=== PATIENT | male | born 1970 | race Caucasian/White ===

== ENCOUNTER → 2018-10-30 | Outpatient (CLI) | payer OTHER | LOC: FIMAGING 09:49 | PROVIDERS: ATTEND Orthopaedic Surgery | DX: M17.11 Unilateral primary osteoarthritis, right knee (principal) ==

== ENCOUNTER 2018-11-07 05:40 | Observation (INO) | payer OTHER ==
[2018-11-07] MEDS ORDERED: FAMOTIDINE 20 MG TAB PO ONE (05:49)
[2018-11-07] MEDS ORDERED: ONDANSETRON 4 MG/2 ML VIAL IVP ONE (05:49)
[2018-11-07] MEDS ORDERED: DEXAMETHASONE 4 MG/ML VIAL IVP ONE (05:49)
[2018-11-07] MEDS ORDERED: ACETAMINOPHEN 325 MG TAB PO ONE (05:49)
[2018-11-07] MEDS ORDERED: GABAPENTIN 300 MG CAP PO ONE (05:49)
[2018-11-07] MEDS ORDERED: ceFAZolin 2 GM/DEXTROSE 100 ML IV ONE (05:49)
[2018-11-07] MEDS ORDERED: LR 1,000 ML IV ONE (05:55)
[2018-11-07] MEDS ORDERED: TRANEXAMIC ACID 1,000 MG in NS 100 ML IV ONE (06:00)
[2018-11-07] MEDS ORDERED: ROPIVACAINE 0.2% 80 MG, EPINEPHrine 0.2 MG, KETOROLAC TROMETHAMINE 30 MG in SYRINGE 0 ML IU ONE (06:00)
[2018-11-07] MEDS ORDERED: TRANEXAMIC ACID 3,000 MG in NS (SYRINGE) 50 ML IRR ONE (06:00)
--- NOTE | 2018-11-07 06:03 | POSTANESTH ---
Post Anesthetic Evaluation Cardiovascular Status: Normal, Stable Respiratory Status: Normal, Stable Level of Consciousness/Mental Status: Can Participate in Eval, Mildly Sleepy, Arousable Pain Control: Adequate, Prn Tx Ordered Nausea/Vomiting Control: Adequate, Prn Tx Ordered Complications Possibly Related to Anesthesia: None Noted Notes: R AC cath placed. Pt a little restless during placement, which made for a more challenging visualization.
--- NOTE | 2018-11-07 06:04 | PDANEPAE ---
ANE History of Present Illness 48 yo male with no significant PMH for R knee partial replacement. ANE Past Medical History - Cardiovascular History Hx Hypertension: No Hx Arrhythmias: No Hx Chest Pain: No Hx Coronary Artery / Peripheral Vascular Disease: No Hx CHF / Valvular Disease: No Hx Palpitations: No - Pulmonary History Hx COPD: No Hx Asthma/Reactive Airway Disease: No Hx Recent Upper Respiratory Infection: No Hx Oxygen in Use at Home: No Hx Sleep Apnea: No Sleep Apnea Screening Result - Last Documented: Negative - Neurologic History Hx Cerebrovascular Accident: No Hx Seizures: No Hx Dementia: No - Endocrine History Hx Diabetes: No Hypothyroid: No Hyperthyroid: No Obesity: no - Renal History Hx Renal Disorders: No - Liver History Hx Hepatic Disorders: No - Neurological & Psychiatric Hx Hx Neurological and Psychiatric Disorders: No - Cancer History Hx Cancer: No - Congenital Disorder History Hx Congenital Disorders: No - GI History Hx Gastrointestinal Disorders: No - Other Health History Other Health History: none - Chronic Pain History Chronic Pain: No - Surgical History Prior Surgeries: 2018 appendectomy. 2017 meniscus repair left knee. another right knee meniscus repair ANE Review of Systems Review of systems is: negative Review of Systems: - Exercise capacity METS (RN): 5 METS - Systems Constitutional: Reports: no symptoms Cardiac: Reports: no symptoms Respiratory: Reports: no symptoms ANE Patient History - Allergies Allergies/Adverse Reactions: oxycodone Allergy (Verified 10/24/18 12:00) Other-Enter Comments - Home Medications Home Medications: Ibuprofen 400 mg PO PRN PRN 11/07/18 [Last Taken 10/31/18] - NPO status NPO Status: no food or drink >8 hours - Anes Hx Anes Hx: no prior problems - Smoking Hx Smoking Status: Never smoked - Alcohol Use Alcohol Use: Occasionally (1/week) - Family Anes Hx Family Anes Hx: neg - N/A Family Hx Anesthesia Complications: none ANE Labs/Vital Signs - Vital Signs Vital Signs: reviewed preoperatively; see RN documention for details Height: 182.88 cm Weight: 79.832 kg ANE Physical Exam - Airway Neck exam: FROM Mallampati Score: Class 1 Mouth exam: normal dental/mouth exam - Pulmonary Pulmonary: clear to auscultation - Cardiovascular Cardiovascular: regular rate and rhythym - ASA Status ASA Status: I ANE Anesthesia Plan Anesthesia Plan: spinal Regional Anesthesia: continuous NB, adductor canal FNB
[2018-11-07] MEDS ORDERED: ceFAZolin 1 GM/5 ML SYR ONE (06:33)
[2018-11-07] MEDS ORDERED: VANCOMYCIN 1 GM VIAL ONE (06:34)
--- NOTE | 2018-11-07 06:53 | PDHPUP ---
History & Physical Update H&P update statement: This history and physical update is based on an assessment of the patient which was completed after admission or registration (within 24 hours), but prior to the surgery/procedure. H&P update: H&P reviewed & patient examined
[2018-11-07] MEDS ORDERED: fentaNYL 100 MCG/2 ML INJ ONE ×4 (07:03→09:53)
[2018-11-07] MEDS ORDERED: LIDOCAINE 2% 5 ML SDV ONE (07:03)
[2018-11-07] MEDS ORDERED: PROPOFOL/EMULSION 500 MG/50 ML BOTTLE IV ONE ×3 (07:04→08:26)
[2018-11-07] MEDS ORDERED: TRANEXAMIC ACID 3,000 MG/50 ML BAG IRR ONE (07:08)
[2018-11-07] MEDS ORDERED: ROPIVACAINE HCL 150 MG/30 ML INJ ONE (08:57)
[2018-11-07] MEDS ORDERED: HYDROCODONE/APAP 5/325 TAB PO PRN ×2 (08:59→09:31)
[2018-11-07] MEDS ORDERED: DIAZEPAM 10 MG/2 ML SYR IVP PRN (08:59)
[2018-11-07] MEDS ORDERED: ALBUTEROL 3 ML DEYVIAL IH PRN (08:59)
[2018-11-07] MEDS ORDERED: LR 500 ML IV PRN (08:59)
[2018-11-07] MEDS ORDERED: NALOXONE HCL 0.4 MG/ML INJ IVP PRN (08:59)
[2018-11-07] MEDS ORDERED: PROMETHAZINE HCL 25 MG/ML INJ IVP PRN ×2 (08:59→09:31)
[2018-11-07] MEDS ORDERED: DEXAMETHASONE 4 MG/ML VIAL IVP PRN (08:59)
[2018-11-07] MEDS ORDERED: PROPOFOL 200 MG/20 ML VIAL ONE (09:10)
--- NOTE | 2018-11-07 09:21 | POSTOPPROG ---
Post Op Note Date of Operation: 11/07/18 Surgeon: Johann Curry Registrar Nurses' Registry: Julio Anesthesiologist: Brett Anesthesia: IV Sedation, Spinal Post-op Diagnosis: Right knee medial compartment degenerative arthritis. Procedure: Right knee Shawn robot assisted medial compartment hemiarthroplasty Inf/Abcess present in the surg proc area at time of surgery?: No EBL: 50-100 (Adductor canal block with indwelling catheter in PACU.)
[2018-11-07] MEDS ORDERED: diphenhydrAMINE 25 MG CAP PO PRN (09:31)
[2018-11-07] MEDS ORDERED: TEMAZEPAM 15 MG CAP PO PRN (09:31)
[2018-11-07] MEDS ORDERED: NS 500 ML IV PRN (09:31)
[2018-11-07] MEDS ORDERED: CYCLOBENZAPRINE 10 MG TAB PO PRN (09:31)
[2018-11-07] MEDS ORDERED: DIPHENOXYLATE/ATROPINE LOMOTIL 1 TAB PO PRN (09:31)
[2018-11-07] MEDS ORDERED: POLYETHYLENE GLYCOL 3350 17 GM PKT PO PRN (09:31)
[2018-11-07] MEDS ORDERED: LACTULOSE 20 GM/30 ML UDCUP PO PRN (09:31)
[2018-11-07] MEDS ORDERED: MAGNESIUM HYDROXIDE 30 ML UDCUP PO PRN (09:31)
[2018-11-07] MEDS ORDERED: METOCLOPRAMIDE 10 MG/2 ML VIAL IVP PRN (09:31)
[2018-11-07] MEDS ORDERED: traMADol 50 MG TAB PO PRN (09:31)
[2018-11-07] MEDS ORDERED: ONDANSETRON 4 MG/2 ML VIAL IVP PRN (09:31)
[2018-11-07] MEDS ORDERED: ONDANSETRON DISINTEGRATING 4 MG TAB PO PRN (09:31)
[2018-11-07] MEDS ORDERED: BISACODYL 10 MG SUPP PR PRN (09:31)
[2018-11-07] MEDS ORDERED: PROMETHAZINE HCL 25 MG SUPPR PR PRN (09:31)
[2018-11-07] MEDS: fentaNYL 100 MCG/2 ML INJ IVP PRN ×3 (09:50→10:05)
[2018-11-07] MEDS ORDERED: LR 1,000 ML IV SCH (10:00)
--- NOTE | 2018-11-07 10:32 | GOP ---
[f rep st] OPERATIVE REPORT DATE OF OPERATION: 11/07/2018 SURGEON: Johann Curry MD BRAZING MACHINE FEEDER: Deonte Romero, SYSTEMS DEVELOPMENT MANAGER and Clark Pena, PAC. ANESTHESIA: A combination of Marcaine, spinal, IV sedation, and adductor canal block ANESTHESIOLOGIST: Marybel Kay MD PREOPERATIVE DIAGNOSIS: Right knee medial compartment degenerative arthritis. POSTOPERATIVE DIAGNOSIS: Right knee medial compartment degenerative arthritis. PROCEDURE PERFORMED: November 07, 2018, right knee Shawn assisted medial compartment hemiarthroplasty. FINDINGS: DESCRIPTION OF PROCEDURE: The patient was given 2 g of preoperative IV Ancef within 60 minutes of patton rgery. He also received 1000 mg of IV tranexamic acid. He was placed on the operating room table an d given spinal anesthesia with Marcaine by Dr. Kay. He was then placed supine. A Doherty catheter was not used. He wore a ZARA stocking and SCD on the nonoperative leg. His right lower extremity wa s prepped with ChloraPrep from the upper thigh tourniquet to the tips of the toes. It was draped myrtle e using sterile sheets, towels and Ioban plastic adhesive drape. The [employer] time- out was performed to verify the correct surgical side and site and the correct patient identity. The [place] time-out was also performed. The DeMayo leg holding device was sterilely attached to the op erating room table and used throughout the procedure to help position the knee. Two Bicortical 3 mm partially threaded pins were inserted in the anteromedial cortex of the femur hector roximately 4 to 5 inches proximal to the superior pole of the patella. They were inserted with the k nee in 90 degrees of flexion. Two bicortical 3 mm partially threaded pins were inserted in the anter omedial cortex of the tibia about 4-5 inches distal to the tibial tubercle. The computer arrays were attached to both sets of pins. I confirmed that both arrays were visualized with the computer. His leg was exsanguinated with a 6-inch compressive wrap, and the tourniquet was inflated to 250 mmHg. A 5 inch straight midline incision was made. Subcutaneous tissues were sharply divided, and hemostas is was obtained using electrocautery. The capsule and synovium were opened in a medial parapatellar fashion. The medial capsule and periosteum were lightly elevated off the rim of the medial tibial pl ateau all the way around to the posteromedial corner. He had severe degenerative changes in his medi al compartment. He was eroded down to subchondral bone on the medial femoral condyle and the medial tibial plateau. He had some mild grade 1 articular cartilage softening on the median ridge of the pa tella and at the depth of his femoral sulcus. The articular surface of the lateral compartment that I could visualize was in good condition. His medial collateral ligament was released a slight amount to balance the medial side of the knee. The anterior portion of the medial meniscus was excised mamta ng with a small portion of the fat pad. The femoral and tibial checkpoints were inserted, checked and confirmed. I then performed hip regist ration followed by registration of the medial and lateral malleoli. The bony anatomy of the medial f emoral condyle and medial tibial plateau were registered. Joint balancing was checked and captured in multiple degrees of flexion from 10 degrees of flexion to 100 degrees of flexion. I used a curved osteotome in the medial compartment to tension his medial c ollateral ligament. Implant positioning and templating were performed. I added 2 degrees of flexion to the femoral component and brought the tibial component 0.5 mm superiorly in order to achieve prop er gap balancing in extension and flexion. I confirmed the preoperative plan for a size 5 femur and a size 5 tibia. Osteophytes were removed from the medial femoral condyle and the medial tibial plate au prior to joint balancing. The robotic arm was registered. The femur was prepared first with the power bur. This was followed by power burring of the tibial plateau. The edges of the articular surface were trimmed with a ronge ur. [place] holes were drilled on the femur and tibia. I excised the posterior horn of his medial me niscus. I did a trial reduction. The size 5 tibia and femur were the correct size. With the 8 mm polyethyle ne insert, he had good soft tissue balance. He had a proper amount of tightness in 90 degrees of fle xion and 10 degrees of flexion. He lacked a few degrees of full extension at the completion of the p rocedure. This was similar to what he had preoperatively. These were read off the computer. Clinic ally, he looked like he had full extension. The surfaces were prepared for cementing. They were carefully cleaned with a pulsating lavage. A Ca rboJet device was used to blow dry the cancellous surfaces. A single batch of high viscosity methylm ethacrylate cement with 1 g of added powdered vancomycin was mixed. While it was in a doughy state, I packed the peg holes on the tibia and layered a small amount of cement on the undersurface of the t ibial tray. The tray was inserted and tapped securely into place. Excess cement was removed before it hardened. I was careful to make sure there was no residual cement around the back of the tibial c omponent. I then packed a small amount of cement in the peg holes on the femur and put additional ce ment on the back of the femoral component. The component was inserted and tapped securely into place . Excess cement was removed before it hardened. He had a smooth transition between the articular ca rtilage and the metal articular surface of the femoral component anteriorly. The size 5, 8 mm tibial insert was inserted. It was locked into place. Tension was held on the knee while it was in 45 deg phyllis of flexion until the cement hardened. Excess cement was removed before it hardened. Clinically postoperatively, he had full extension and 135 degrees of flexion. The tourniquet was deflated and the total tourniquet time was 1 hour and 10 minutes. Tibial and femo ral check points were removed. The 2 pins in the femur and the 2 pins in the tibia were removed. 40 mL of joint anesthetic cocktail were injected into the medial capsule, the vastus medialis tendon an d muscle areas, and the subcutaneous tissues along the skin edges. 50 cc of tranexamic acid were irr igated into the joint. Prior to insertion of the tranexamic acid, the knee was thoroughly irrigated with a dilute Betadine solution. The vastus medialis portion of the extensor mechanism was repaired with several interrupted [id number] #2 FiberWire sutures. The capsule and synovium were closed first with multiple interrupted [id number] 0 PDS sutures, followed by a running #2 barbed Ethico n Stratafix PDO suture. Subcutaneous tissues were closed with a running 0 barbed Ethicon Stratafix M onoderm suture. The skin was closed with a running 3-0 barbed Ethicon Stratafix subcuticular suture. The skin edges were reapproximated and sealed with half-inch Steri-Strips. The puncture wounds on the femur and tibia were closed with single 3-0 Monocryl subcuticular sutures. The wound was covered with a piece of sterile Mepilex dressing. The knee was wrapped with a 6-inch compressive wrap, and a ZARA stocking was applied followed by the cooling device. He wore a stocking and SCD on the opposit e leg during the procedure. The sacral Mepilex dressing was applied. The sponge and needle counts were correct on 2 occasions. I confirmed that the femoral and tibial ch eckpoints were removed. I used a Shawn Restoris MCK femoral component in size 5. The tibial component was a Shawn Restoris MCK in size 5. The tibial polyethylene was a size 5 with 8 mm of thickness. Deonte Romero and Davis Pena acted as surgical assistants. Their assistance was a medical necess ity for safe completion of the procedure. In the PACU, for additional postoperative pain control, Dr. Kay performed an adductor canal block with an indwelling catheter. /[id number]/MODL
[2018-11-07] MEDS ORDERED: KETOROLAC 15 MG/1 ML SDV IVP SCH (12:00)
[2018-11-07] MEDS ORDERED: ceFAZolin 2 GM/DEXTROSE 100 ML IV SCH (15:30)
[2018-11-07] MEDS ORDERED: ACETAMINOPHEN 325 MG TAB PO SCH (15:32)
--- NOTE | 2018-11-07 15:42 | SOAPPROG ---
SOAP Progress Note Assessment/Plan: Assessment: Right knee medial compartment athroplasty - procedure earlier this morning Afebrile. Patient is up and walking. Mild pain. Dressing is dry. Films look good. Progressed well in PT Plan: Patient doing better than expected and will be d/c today. Outpatient PT. 11/07/18 15:55 Subjective: Patient states he is feeling really good. PT went well and he was able to walk the hallways and do the stairs without significant difficulty. He feels ready to go home. He denies SOB, CP, fever, chills, nausea. Objective: Vital Signs Temp Pulse Resp BP Pulse Ox 36.8 C 92 16 125/81 H 95 11/07/18 14:14 11/07/18 14:14 11/07/18 14:14 11/07/18 14:14 11/07/18 14:14 11/06/18 11/07/18 11/08/18 05:59 05:59 05:59 Intake Total 2500 Output Total 1600 Balance 900 Patient resting comfortably in bed, no acute distress. He is tolerating the ZeroKnee. RLE: Adductor canal block catheter was removed. Surgical wound dressings are clean, dry and intact. Lower leg compartments are soft and nontender. He can actively DF and PF the right foot and great toe. Grossly NVI distally. ICD10 Worksheet Patient Problems: Problems Problem Status Onset Osteoarthritis of right knee Acute
[2018-11-07 15:43] VITALS: BP 116/79
--- NOTE | 2018-11-07 15:57 | PDDCSUM ---
Discharge Summary Discharge Summary: ADMISSION DIAGNOSIS: Right knee severe medial compartment degenerative arthritis DISCHARGE DIAGNOSIS: Right knee severe medial compartment degenerative arthritis OPERATION PERFORMED: November 07, 2018 Right medial compartment arthroplasty, Shawn robot assisted. POSTOPERATIVE COMPLICATIONS: None CONDITION ON DISCHARGE: Improved BRIEF HISTORY: Patient is a 48 year old male who presented to Dr. Curry's office for progressively worsening right knee pain, advanced medial compartment arthritis and resistance to conservative therapies. He has tried and failed pharmacological management, previous arthroscopic surgery, injection therapies and PT. He had worsening pain with ADLs and could not participate in activities he enjoys because of the pain. He elected to proceed with a right knee medial compartment arthroplasty. DESCRIPTION OF HOSPITAL COURSE: The patient was admitted to the hospital on the morning of surgery. The patients admission labs including CBC were normal. The same day, under a combination of Marcaine, spinal, IV sedation, and adductor canal block patient underwent a right knee medial compartment arthroplasty, Shawn robot assisted. Postoperatively, patient was treated with multimodal DVT prophylaxis, including aspirin, SCDs and ZARA hose. Patient was seen by PT and made rapid progress with ambulation and stairs. Patient was able to void spontaneously. At the time of discharge, patient was afebrile, wound was clean and dry. Patient is walking with a walker. DISPOSITION: The patient is discharged home and will have outpatient PT in the coming 1-2 weeks. Patient may progress to full weightbearing on the right lower extremity as tolerated. ZARA stockings for 1 week. Aspirin for 21 days. Patient has received prescriptions for Zofran for nausea and Celebrex, oxycodone, and tramadol for pain control. The patient will be seen by Dr. Curry in the office on November 17, 2018. If there are any problems, patient is to call Dr. Curry at the office.
[2018-11-07] MEDS ORDERED: ASPIRIN 325 MG TAB PO SCH (21:00)
[2018-11-07] MEDS ORDERED: FAMOTIDINE 20 MG TAB PO SCH (21:00)
[2018-11-07] MEDS ORDERED: SENNOSIDES/DOCUSATE SODIUM TAB PO SCH (21:00)
[2018-11-08] MEDS ORDERED: ROPIVACAINE HCL 150 MG/30 ML INJ ONE (07:19)
[2018-11-08] MEDS ORDERED: FERROUS SULFATE 325 MG TAB PO SCH (08:00)
== END 2018-11-07 17:30 | disposition home or self-care (01) ==
LOC: F3N 05:40 → INTOOBSV 05:40 → F3N 10:53
PROVIDERS: ADMIT Orthopaedic Surgery; ATTEND Orthopaedic Surgery
PROC: 8E0YXCZ Robotic Assisted Procedure of Lower Extremity (ICD-10-PCS; principal; 2018-11-07 07:15)
PROC: 0SUC0JZ Supplement Right Knee Joint with Synthetic Substitute, Open Approach (ICD-10-PCS; principal; 2018-11-07 07:15)
DX: M17.11 Unilateral primary osteoarthritis, right knee (principal)
CPT/HCPCS: 27446; 73560; 97110; 97116; 97161; 97165; G0378; C1713; J0171; J0690; J1100; J1885; J2405; J2704; J2795; J3010; J3370